=== PATIENT | male | born 1975 | race Caucasian/White ===

== ENCOUNTER 2018-03-28 20:51 | Observation (INO) ==
[2018-03-28] MEDS ORDERED: fentaNYL Citrate Inj 100 MCG/2 ML Ampul IV.PUSH ONE (22:01)
--- NOTE | 2018-03-28 22:09 | ED ---
HPI General Chief complaint: Skin/Abscess/Foreign Body Stated complaint: Food Stuck In Throat Time Seen by Provider: 03/28/18 21:55 Source: patient Mode of arrival: ambulatory Limitations: no limitations History of Present Illness HPI narrative: Patient presents with an esophageal foreign body. He has a piece of steak caught. Onset was 2 hours ago. He is unable to swallow his own secretions. He reports a positive previous similar history but states that the food bolus has always eventually passed spontaneously. Tonight, it will not pass. Onset (ago): hour(s) (2) Location: chest (Upper chest just below the sternal notch) Pain Consistency: constant Relieving factors: none Exacerbating factors: none Related Data Home Medications Medication Instructions Recorded Confirmed No Known Home Medications 03/28/18 03/28/18 Allergies Allergy/AdvReac Type Severity Reaction Status Date / Time codeine Allergy Severe Anaphylaxis Verified 03/28/18 21:42 Review of Systems Except as stated in HPI: all other systems reviewed are negative [facility] Medical History Medical History Kidney stones (Acute) Surgical History Surgical History H/O vasectomy (Acute) S/P ear surgery (Acute) Social History Social History Substance History: No History of Abuse Second Hand Smoke Exposure: No Smoking Status: Former smoker How Often Do You Have a Drink Containing Alcohol: 4 or more times a week Recent Travel in [facility] within the Last 8 Weeks: No Recent Out of Country Travel within the Last 8 Weeks: No Immunization History Tetanus Immunization: >5 Years Hx Influenza Vaccine This Season: No Exam Const General: cooperative, healthy appearing, comfortable and no acute distress [facility] Head: normal to inspection, normocephalic and atraumatic Eyes General: appearance normal, both eyes and all related structures EOM: EOM intact bilaterally Neck Neck: normal visual inspection and full ROM Chest Chest: normal inspection of the chest Resp Effort & Inspection: normal respiratory effort and able to speak in complete sentences Cardio Rate: regular rate Rhythm: regular rhythm Back/Spine/Pelvis Cervical Spine: cervical ROM normal Thoracic/Lumbar Spine: thoraco-lumbar ROM normal Skin General: no rashes or lesions noted and turgor normal Neuro General: alert, awake, oriented x3, moves all extremities and CN's II-XI intact bilaterally Extrem General: normal to inspection and full ROM Psych Appearance: grossly normal and well kempt Mental Status: mental status grossly normal Speech and Movement: speech and movement normal Mood: congruent mood Affect: normal affect Attitude: cooperative Thought Process: normal Thought Content: normal Judgment: judgment good Course Consultations Consultation #1: Dr. Morales requested that the patient be sent to [facility] for EGD in the morning. Consultation #2: Dr. Ohara Initial Documented Vital Signs Temperature 98.6 F 03/28/18 21:37 Pulse Rate 89 03/28/18 21:37 Respiratory Rate 18 03/28/18 21:37 Blood Pressure 110/75 03/28/18 21:37 Last Documented Vital Signs Temperature 98.6 F 03/28/18 21:37 Pulse Rate 88 03/28/18 23:25 Respiratory Rate 16 03/28/18 23:25 Blood Pressure 105/62 03/28/18 23:25 Pulse Oximetry 98 03/28/18 23:25 Medical Decision Making MDM Narrative Medical decision making narrative: This patient presents with an esophageal foreign body. I will attempt conservative management first. Differential Diagnosis Differential Diagnosis: Differential diagnosis includes but is not limited to foreign body sensation, esophageal stricture, esophageal spasm Discharge Plan Discharge Disposition Patient Disposition: 30 Still Patient Discharge Condition Condition: Stable Discharge Details Diagnosis: Esophageal foreign body Physicians Team ED Provider: Libia Pisano Primary Care Provider: UNKNOWN, Rxs /Orders / Referrals /Forms Prescriptions: No Action No Known Home Medications RF: 0 Discharge Interventions Interventions: Vital Signs Last Done: 03/28/18 23:25 Status ED Status: With Doctor
[2018-03-29] MEDS ORDERED: Temazepam 15 MG Capsule PO PRN (00:16)
[2018-03-29] MEDS ORDERED: Bisacodyl 10 MG Supp RECTAL PRN (00:16)
[2018-03-29] MEDS ORDERED: Sod Chloride 0.9% Inj 1,000 ML IV.SIG ONE (00:28)
[2018-03-29] MEDS ORDERED: Sod Chloride 0.9% Inj 1,000 ML IV.CONT SCH (00:30)
[2018-03-29] MEDS ORDERED: Senna/Docusate Sodium 8.6/50 MG Tablet PO SCH (09:00)
--- NOTE | 2018-03-29 09:19 | P.CONGI ---
History of Present Illness Consult date: 03/29/18 Requesting physician: Libia Pisano Consult reason: Foreign body impaction in the esophagus Chief complaint: esophageal foreign body History of Present Illness: Patient presenting to the emergency room with complaints of the piece of steak stuck in his esophagus he has been unable to swallow his saliva the patient tells me he has had episodes in the past of some dysphagia but would resolve spontaneously this time it has not he denies any history of heartburn or reflux denies any NSAID use or aspirin use and he has been in good health up until this happened Review of Systems Constitutional: Denies weight loss Ears, Nose, Mouth, and Throat: Reports difficulty swallowing Cardiovascular: Denies chest pain Respiratory: Denies shortness of breath Gastrointestinal: Denies abdominal pain PMFSH - History History Provided By: Patient - Medical / Surgical Hx Neg / Unobtainable Medical Problems Denied: Yes - Medical History Medical History: Medical History (Last Reviewed 03/28/18 @ 22:07 by Libia Pisano) Kidney stones - Surgical History Surgical History: Surgical History (Last Updated 03/28/18 @ 21:52 by Lashell Stratton RN) H/O vasectomy S/P ear surgery - Tobacco History Second Hand Smoke Exposure: No Tobacco Use In Past 30 Days: No Smoking Status: Former smoker - Alcohol History How Often Do You Have a Drink Containing Alcohol: Never - Substance Use History Substance History: No History of Abuse - Travel History Recent Travel in the [place] Within the Last 8 Weeks: No Recent Travel Out of the Country Within the Last 8 Weeks: No - Immunization History Tetanus Immunization: >5 Years Hx Influenza Vaccine This Season: No Medications and Allergies Active Medications: Active Medications Al Hydroxide/Mg Hydroxide (Milk Of Magnesia Liq) 30 ml PO Q12H PRN PRN Reason: Mild Constipation Bisacodyl (Dulcolax Supp) 10 mg RECTAL DAILY PRN PRN Reason: SEVERE CONSITIPATION Sodium Chloride (Ns Inj) 1,000 mls @ 100 mls/hr IV.CONT .Q10H [facility] Last Admin: 03/29/18 00:36 Dose: 100 mls/hr Lactulose (Lactulose Liq) 30 ml PO DAILY PRN PRN Reason: SEVERE CONSITIPATION Ondansetron HCl (Zofran Inj) 4 mg IV.PUSH Q6H PRN PRN Reason: NAUSEA OR VOMITING Senna/Docusate Sodium (Sunshine-Colace) 1 tab PO BID NISHA Sennosides (Senokot) 17.2 mg PO Q12H PRN PRN Reason: Moderate Constipation Sodium Chloride (Ns Flush) 2 ml IV.FLUSH PRN PRN PRN Reason: FLUSH AFTER USING IV ACCESS Last Admin: 03/28/18 22:50 Dose: 2 ml Temazepam (Restoril) 15 mg PO HS PRN PRN Reason: INSOMNIA Allergies Allergy/AdvReac Type Severity Reaction Status Date / Time codeine Allergy Severe Anaphylaxis Verified 03/28/18 21:42 Home Medications Medication Instructions Recorded Confirmed Type No Known Home Medications 03/28/18 03/28/18 History Exam Vital signs: Vital Signs 03/28/18 21:37 03/28/18 22:25 03/28/18 22:40 Temperature 98.6 F Pulse Rate 89 86 90 Respiratory Rate 18 16 16 Blood Pressure 110/75 118/66 108/67 Pulse Oximetry 98 96 03/28/18 22:53 03/28/18 22:57 03/28/18 23:10 Temperature Pulse Rate 96 H 94 H 100 H Respiratory Rate 14 14 14 Blood Pressure 110/71 114/66 129/68 Pulse Oximetry 96 92 L 98 03/28/18 23:25 03/28/18 23:53 03/29/18 00:17 Temperature Pulse Rate 88 68 Respiratory Rate 16 14 Blood Pressure 105/62 109/53 L Pulse Oximetry 98 96 95 03/29/18 00:28 03/29/18 01:55 03/29/18 02:30 Temperature Pulse Rate 72 72 Respiratory Rate 16 16 Blood Pressure 113/64 110/63 Pulse Oximetry 97 95 03/29/18 07:45 Temperature 98.0 F Pulse Rate 103 H Respiratory Rate 18 Blood Pressure 121/74 Pulse Oximetry 100 Intake & Output 03/28/18 03/29/18 03/29/18 18:59 06:59 18:59 Intake Total 1999 400 / 400 Balance 1999 400 / 400 Weight 73 kg Intake: IV 1000 / 1000 NS Inj 1,000 ML @ Wide Open IV. 1000 / 1000 SIG BOLUS ONE Rx#:[id number] Anesthesia Amount 400 / 400 Other 1000 / 1000 Other: Other Intake Source Saline Solution - Constitutional no acute distress - Routine HEENT Exam Head: Present: normocephalic, atraumatic Eye: Present: EOMI ENT: Present: mucous membranes moist - Routine Neck Exam Present: supple - Routine Respiratory Exam Present: CTA bilaterally - Routine Cardiovascular Exam Present: RRR - Routine Abdominal Exam Present: soft, normoactive bowel sounds - Routine Extremities Exam Present: full ROM - Routine Neurological Exam Present: alert, oriented X3 Assessment and Plan - Plan Patient with a foreign body impaction we will proceed with an EGD further recommendations she will depend on findings
--- NOTE | 2018-03-29 09:21 | P.PCN ---
Date of procedure: 03/29/18 Pre-op diagnosis: Food bolus impaction Post-op diagnosis: same Procedure: PROCEDURE PERFORMED EGD with foreign body extraction INDICATION FOR PROCEDURE Food bolus impaction PROCEDURE: The procedure, risks and benefits were discussed with Patient/POA and informed consent was obtained. Anesthesia sedated Patient with Diprivan. Patient was placed in the left lateral decubitus position. EGD: The Pentax videoscope was introduced through the oropharynx and advanced to the second portion of the duodenum under direct visualization. Retroflexion was performed in the stomach. FINDINGS: The esophagus there was a foreign body noted in the distal esophagus I was able to extract this initially using the Snow net then the rat-tooth post extraction esophagus appeared to be unremarkable and within normal limits The stomach was also normal The duodenum was also normal ESTIMATED BLOOD LOSS: None SPECIMENS REMOVED: None COMPLICATIONS: None IMPRESSION: Food bolus impaction PLAN: Patient cleared for discharge post complete recovery Patient instructed to chew food well Anesthesia: GETA Surgeon: Avni Morales Pathology: none sent Condition: stable Disposition: PACU
[2018-03-29] MEDS ORDERED: Lidocaine PF 1% Inj 5 ML Syringe INFILTRATN ONE (10:00)
[2018-03-29] MEDS ORDERED: Succinylcholine Inj 100 MG/5 ML Syringe IV.PUSH ONE (10:00)
[2018-03-29 10:03] VITALS: TEMP 97.9; O2SAT 97
[2018-03-29 10:06] VITALS: BP 107/77; PULSE 90; RESP 14
--- NOTE | 2018-03-29 11:26 | P.HPIM ---
History of Present Illness Primary Care Physician: UNKNOWN History of Present Illness: 42-year-old male who presented overnight after having sensation of steak stuck in his esophagus. Unable to swallow his saliva, with dull esophageal discomfort. Patient is currently status post removal of foreign body from esophagus, and is able to clear saliva. He says he is feeling better, feels like going home. He says he will chew his food well. Review of Systems Performed and negative except for HPI and past medical history. PMFSH - History History Provided By: Patient - Medical / Surgical Hx Neg / Unobtainable Medical Problems Denied: Yes - Medical History Medical History: Medical History (Last Reviewed 03/28/18 @ 22:07 by Libia Pisano) Kidney stones - Surgical History Surgical History: Surgical History (Last Updated 03/28/18 @ 21:52 by Lashell Stratton RN) H/O vasectomy S/P ear surgery - Family History Family History: Family History (Last Updated 03/29/18 @ 11:25 by Zana Trivedi MD) Mother Healthy adult Father Healthy adult - Tobacco History Second Hand Smoke Exposure: No Tobacco Use In Past 30 Days: No Smoking Status: Former smoker - Alcohol History How Often Do You Have a Drink Containing Alcohol: Never - Substance Use History Substance History: No History of Abuse - Travel History Recent Travel in the [place] Within the Last 8 Weeks: No Recent Travel Out of the Country Within the Last 8 Weeks: No - Immunization History Tetanus Immunization: >5 Years Hx Influenza Vaccine This Season: No Medications and Allergies Active Medications: Active Medications Al Hydroxide/Mg Hydroxide (Milk Of Magnesia Liq) 30 ml PO Q12H PRN PRN Reason: Mild Constipation Bisacodyl (Dulcolax Supp) 10 mg RECTAL DAILY PRN PRN Reason: SEVERE CONSITIPATION Sodium Chloride (Ns Inj) 1,000 mls @ 100 mls/hr IV.CONT .Q10H [facility] Last Admin: 03/29/18 00:36 Dose: 100 mls/hr Lactulose (Lactulose Liq) 30 ml PO DAILY PRN PRN Reason: SEVERE CONSITIPATION Miscellaneous Information ([facility] Nursing Information) 1 each OTHER UNSCH PRN PRN Reason: SEE LABEL COMMENTS Stop: 03/30/18 09:13 Ondansetron HCl (Zofran Inj) 4 mg IV.PUSH Q6H PRN PRN Reason: NAUSEA OR VOMITING Senna/Docusate Sodium (Sunshine-Colace) 1 tab PO BID NISHA Last Admin: 03/29/18 10:15 Dose: Not Given Sennosides (Senokot) 17.2 mg PO Q12H PRN PRN Reason: Moderate Constipation Sodium Chloride (Ns Flush) 2 ml IV.FLUSH PRN PRN PRN Reason: FLUSH AFTER USING IV ACCESS Last Admin: 03/28/18 22:50 Dose: 2 ml Temazepam (Restoril) 15 mg PO HS PRN PRN Reason: INSOMNIA Allergies Allergy/AdvReac Type Severity Reaction Status Date / Time codeine Allergy Severe Anaphylaxis Verified 03/28/18 21:42 Home Medications Medication Instructions Recorded Confirmed Type No Known Home Medications 03/28/18 03/28/18 History Exam Vital signs: Vital Signs 03/28/18 21:37 03/28/18 22:25 03/28/18 22:40 Temperature 98.6 F Pulse Rate 89 86 90 Respiratory Rate 18 16 16 Blood Pressure 110/75 118/66 108/67 Pulse Oximetry 98 96 03/28/18 22:53 03/28/18 22:57 03/28/18 23:10 Temperature Pulse Rate 96 H 94 H 100 H Respiratory Rate 14 14 14 Blood Pressure 110/71 114/66 129/68 Pulse Oximetry 96 92 L 98 03/28/18 23:25 03/28/18 23:53 03/29/18 00:17 Temperature Pulse Rate 88 68 Respiratory Rate 16 14 Blood Pressure 105/62 109/53 L Pulse Oximetry 98 96 95 03/29/18 00:28 03/29/18 01:55 03/29/18 02:30 Temperature Pulse Rate 72 72 Respiratory Rate 16 16 Blood Pressure 113/64 110/63 Pulse Oximetry 97 95 03/29/18 07:45 03/29/18 09:12 03/29/18 09:15 Temperature 98.0 F 97.9 F Pulse Rate 103 H 97 H 90 Respiratory Rate 18 12 12 Blood Pressure 121/74 129/73 126/69 Pulse Oximetry 100 97 98 03/29/18 09:29 Temperature 97.9 F Pulse Rate 90 Respiratory Rate 14 Blood Pressure 107/77 Pulse Oximetry 97 Intake & Output 03/28/18 03/29/18 03/29/18 18:59 06:59 18:59 Intake Total 1999 400 / 400 Balance 1999 400 / 400 Weight 73 kg Intake: IV 1000 / 1000 NS Inj 1,000 ML @ Wide Open IV. 1000 / 1000 SIG BOLUS ONE Rx#:[id number] Anesthesia Amount 400 / 400 Other 1000 / 1000 Other: Other Intake Source Saline Solution Narrative: GENERAL: Patient sitting up in bed, walking around unit. Appears comfortable. SKIN: Warm and dry. HEAD: Normocephalic. EYES: No scleral icterus. No injection or drainage. NECK: Supple, trachea midline. No JVD or lymphadenopathy. Patient with some slight ecchymosis and mild edema of the uvula. CARDIOVASCULAR: Regular rate and rhythm without murmurs, gallops, or rubs. RESPIRATORY: Breath sounds equal bilaterally. No accessory muscle use. GASTROINTESTINAL: Abdomen soft, non-tender, nondistended. MUSCULOSKELETAL: No cyanosis, or edema. BACK: Nontender without obvious deformity. No CVA tenderness. Caprini VTE Risk Assessment Caprini VTE Risk Assessment: No/Low Risk (score <= 1) Caprini Risk Assessment Model: Point Value = 1 Point Value = 2 Point Value = 3 Point Value = 5 Age 41-60 Minor surgery BMI > 25 kg/m2 Swollen legs Varicose veins or History of unexplained or recurrent spontaneous Oral contraceptives or hormone replacement Sepsis (< 1 month) Serious lung disease, including pneumonia (< 1 month) Abnormal pulmonary function Acute myocardial infarction Congestive heart failure (< 1 month) History of inflammatory bowel disease Medical patient at bed rest Age 61-74 Arthroscopic surgery Major open surgery (> 45 min) Laparoscopic surgery (> 45 min) Malignancy Confined to bed (> 72 hours) Immobilizing plaster cast Central venous access Age >= 75 History of VTE Family history of VTE Factor V Leiden Prothrombin [id number] Lupus anticoagulant Anticardiolipin antibodies Elevated serum homocysteine Heparin-induced thrombocytopenia Other congenital or acquired thrombophilia Stroke (< 1 month) Elective arthroplasty Hip, pelvis, or leg fracture Acute spinal cord injury (< 1 month) Prophylaxis Regimen: Total Risk Factor Score Risk Level Prophylaxis Regimen 0-1 Low Early ambulation 2 Moderate Order ONE of the following: *Sequential Compression Device (SCD) *Heparin 5000 units SQ BID 3-4 Higher Order ONE of the following medications: *Heparin 5000 units SQ TID *Enoxaparin/Lovenox 40 mg SQ daily (WT < 150 kg, CrCl > 30 mL/min) *Enoxaparin/Lovenox 30 mg SQ daily (WT < 150 kg, CrCl > 10-29 mL/min) *Enoxaparin/Lovenox 30 mg SQ BID (WT < 150 kg, CrCl > 30 mL/min) AND/OR *Sequential Compression Device (SCD) 5 or more Highest Order ONE of the following medications: *Heparin 5000 units SQ TID (Preferred with Epidurals) *Enoxaparin/Lovenox 40 mg SQ daily (WT < 150 kg, CrCl > 30 mL/min) *Enoxaparin/Lovenox 30 mg SQ daily (WT < 150 kg, CrCl > 10-29 mL/min) *Enoxaparin/Lovenox 30 mg SQ BID (WT < 150 kg, CrCl > 30 mL/min) AND *Sequential Compression Device (SCD) Assessment and Plan - Plan //Foreign body esophagus. Status post removal. GI is cleared patient for discharge. Discharge home. I recommended soft mechanical diet for the next few days. Also recommend patient to his food very well. Discharge Planning: Discharge home in good condition. H&P: Quality - VTE Deep Vein Thrombosis/Pulmonary Embolism Present on Admission: No
== END 2018-03-29 11:41 | disposition home or self-care (01) ==
LOC: NEPFCDU 20:51 → PHEDA 20:51 → PHED 20:51 → PHEDA 03-29 02:36 → NEPFCDU 03-29 02:46
PROVIDERS: ADMIT Internal Medicine; ATTEND Internal Medicine